=== PATIENT | female | born 1985 | race Caucasian/White ===

== ENCOUNTER 2017-12-12 17:11 | Emergency (ER) | payer BC ==
[2017-12-12] MEDS ORDERED: NS 1,000 ML IV ONE (18:09)
--- NOTE | 2017-12-12 18:21 | EDPHY ---
HPI/HX/ROS/PE/MDM Narrative: CHIEF COMPLAINT: Blurred vision, tingling in legs, heavy arms HISTORY OF PRESENT ILLNESS: The patient is a 32 y/o female with a history of tension headaches complaining of blurred vision, heavy arms, and tingling in her legs, worse in her left leg, onset 4:00 PM, 2 hours ago. Last week, she had diarrhea, fever, chills, myalgias, sharp and stabbing abdominal pain, nausea, and vomiting. The fever, chills, myalgia, and vomiting has resolved. She felt normal Saturday and Saturday. Saturday, the nausea and sharp pain in her left upper quadrant returned and has not resolved. She hasn't eaten much for the past few days. Two days ago she had Botox injections to her nose and forehead. Today, around 4:00PM, she began having blurred vision with sections of her visual field absent. In addition she had some colorful shimmering in the edges of her sight. The symptoms did not resolve and half an hour later she developed tingling in her legs, worse on the right, heaviness in her arms, and tingling in her face. She has an associated headache in the back of her head. She denies difficulty walking, difficulty swallowing, or any other associated symptoms. She denies recent trauma or changes in medication. She uses nicotine in the form of vaping. She denies heavy drinking, marijuana use, or illicit drug use. She uses Nuva ring for control and denies chance of . No fever, chills, chest pain, shortness of breath, palpitations, vomiting, diarrhea, urinary complaints, lightheadedness. REVIEW OF SYSTEMS: Aside from elements discussed in the HPI, a comprehensive 10-point review of systems was reviewed and is negative. PAST MEDICAL HISTORY: Depression, ADHD, tension headaches, Botox injections SOCIAL HISTORY: PCP: Candice, works at [employer], social drinker VITAL SIGNS: Reviewed by me GENERAL: Well-developed, well-nourished. Flat affect. Slow to answer questions. HEENT: Atraumatic. Eyes: No icterus, no injection. No nystagmus. PERRL, EOMI. Cranial nerves 2-12 are intact. Mouth: moist mucous membranes. No erythema or lesions. Neck: supple with no adenopathy. LUNGS: Clear to auscultation bilaterally, no wheezes, rhonchi or rales. CARDIAC: Regular rate and rhythm, no rubs, murmurs or gallops. ABDOMEN: Soft, nontender, nondistended, bowel sounds normal. BACK: No CVA tenderness. EXTREMITIES: No trauma. No edema. Range of motion is normal throughout. NEURO: Alert and oriented, grossly nonfocal. Somewhat slow to answer questions. Motor strength 5/5 throughout. Sensation intact to light touch throughout. Normal [id number]. SKIN: Warm and dry, no rash. PSYCHIATRIC: Normal mentation, no agitation. ED Course: 12-LEAD EKG: Please see the full report in [facility]. My interpretation: Sinus arrhythmia The patient presents with visual distortions, heaviness in her arms, and tingling in her face and legs onset 2 hours ago. She was ill last week with nausea, vomiting, diarrhea, and abdominal pain. On exam, she has a nonfocal neurologic exam. She seems to have flat affect and is slow to answer questions. Plan for fluids, CBC, basic metabolic panel, troponin, and EKG. 6:35 PM- EKG indicates sinus arrhythmia. Labs are not indicative of an etiology. Plan for urinalysis and drug screen as the patient continues to have a flat affect and is slightly "spacey". 8:00 p.m.: Patient is reexamined. She is feeling better. The arms feel not as heavy. She has had no further visual complaints. She has developed no headache. She has a nonfocal neurologic exam. Her affect is bright. She is conversant without difficulties. She feels comfortable being discharged with close follow up with her primary care physician. No headache. No neck pain. No numbness or tingling. No weakness. No speech difficulty. MDM: Differential diagnoses the patient's presenting complaints was considered including but not limited to intracranial injury, TIA, ischemic cerebrovascular accident, hemorrhagic cerebrovascular accident, hypoglycemia, complex migraine , metastases, tumor, seizure, or electrolyte abnormality - Data Points Laboratory Results: Laboratory Results 12/12/17 18:48 12/12/17 18:48 12/12/17 12/12/17 12/12/17 19:43 18:48 18:48 WBC RBC Hgb Hct MCV MCH MCHC RDW Plt Count MPV Neut % (Auto) Lymph % (Auto) [place] % (Auto) Eos % (Auto) Baso % (Auto) Nucleat RBC Rel Count Absolute Neuts (auto) Absolute Lymphs (auto) Absolute Monos (auto) Absolute Eos (auto) Absolute Basos (auto) Absolute Nucleated RBC Immature Gran % Immature Gran # Sodium 138 mEq/L mEq/L (135-145) Potassium 4.2 mEq/L mEq/L (3.5-5.2) Chloride 102 mEq/L mEq/L (97-110) Carbon Dioxide 25 mEq/l mEq/l (22-31) Anion Gap 11 mEq/L mEq/L (8-16) BUN 10 mg/dL mg/dL (7-23) Creatinine 0.6 mg/dL mg/dL (0.6-1.0) Estimated GFR > 60 Glucose 70 mg/dL mg/dL (70-100) Calcium 8.8 mg/dL mg/dL (8.5-10.4) Troponin I < 0.012 ng/mL ng/mL (0.000-0.034) Beta HCG, Qual NEGATIVE Urine Color YELLOW Urine Appearance HAZY Urine pH 7.0 (5.0-7.5) Ur Specific [place] 1.012 (1.002-1.030) Urine Protein NEGATIVE (NEGATIVE) Urine Ketones NEGATIVE (NEGATIVE) Urine Blood NEGATIVE (NEGATIVE) Urine Nitrate NEGATIVE (NEGATIVE) Urine Bilirubin NEGATIVE (NEGATIVE) Urine Urobilinogen NEGATIVE EU EU (0.2-1.0) Ur Leukocyte Esterase NEGATIVE (NEGATIVE) Urine RBC 1-3 /hpf /hpf (0-3) Urine WBC 1-3 /hpf /hpf (0-3) Ur Epithelial Cells TRACE /lpf /lpf (NONE-1+) Urine Bacteria TRACE /hpf H /hpf (NONE SEEN) Urine Mucus TRACE /lpf /lpf (NONE-1+) Urine Glucose NEGATIVE (NEGATIVE) Urine Opiates Screen NEGATIVE (NEGATIVE) Urine Barbiturates NEGATIVE (NEGATIVE) Ur Phencyclidine Scrn NEGATIVE (NEGATIVE) Ur Amphetamine Screen NON-NEGATIVE H (NEGATIVE) U Benzodiazepines Scrn NEGATIVE (NEGATIVE) Urine Cocaine Screen NEGATIVE (NEGATIVE) U Marijuana (THC) Screen NEGATIVE (NEGATIVE) 12/12/17 18:48 WBC 5.23 10^3/uL 10^3/uL (3.80-9.50) RBC 4.53 10^6/uL 10^6/uL (4.18-5.33) Hgb 13.7 g/dL g/dL (12.6-16.3) Hct 38.8 % % (38.0-47.0) MCV 85.7 fL fL (81.5-99.8) MCH 30.2 pg pg (27.9-34.1) MCHC 35.3 g/dL g/dL (32.4-36.7) RDW 11.5 % % (11.5-15.2) Plt Count 135 10^3/uL L 10^3/uL (150-400) MPV 10.8 fL fL (8.7-11.7) Neut % (Auto) 44.5 % % (39.3-74.2) Lymph % (Auto) 46.5 % H % (15.0-45.0) [place] % (Auto) 7.6 % % (4.5-13.0) Eos % (Auto) 1.0 % % (0.6-7.6) Baso % (Auto) 0.2 % L % (0.3-1.7) Nucleat RBC Rel Count 0.0 % % (0.0-0.2) Absolute Neuts (auto) 2.33 10^3/uL 10^3/uL (1.70-6.50) Absolute Lymphs (auto) 2.43 10^3/uL 10^3/uL (1.00-3.00) Absolute Monos (auto) 0.40 10^3/uL 10^3/uL (0.30-0.80) Absolute Eos (auto) 0.05 10^3/uL 10^3/uL (0.03-0.40) Absolute Basos (auto) 0.01 10^3/uL L 10^3/uL (0.02-0.10) Absolute Nucleated RBC 0.00 10^3/uL 10^3/uL (0-0.01) Immature Gran % 0.2 % % (0.0-1.1) Immature Gran # 0.01 10^3/uL 10^3/uL (0.00-0.10) Sodium Potassium Chloride Carbon Dioxide Anion Gap BUN Creatinine Estimated GFR Glucose Calcium Troponin I Beta HCG, Qual Urine Color Urine Appearance Urine pH Ur Specific [place] Urine Protein Urine Ketones Urine Blood Urine Nitrate Urine Bilirubin Urine Urobilinogen Ur Leukocyte Esterase Urine RBC Urine WBC Ur Epithelial Cells Urine Bacteria Urine Mucus Urine Glucose Urine Opiates Screen Urine Barbiturates Ur Phencyclidine Scrn Ur Amphetamine Screen U Benzodiazepines Scrn Urine Cocaine Screen U Marijuana (THC) Screen Medications Given: Discontinued Medications Sodium Chloride (Ns) 1,000 mls @ 0 mls/hr IV ONCE ONE; Wide Open PRN Reason: Protocol Stop: 12/12/17 18:10 Last Admin: 12/12/17 18:49 Dose: 1,000 mls General Time Seen by Provider: 12/12/17 17:47 Initial Vital Signs: Initial Vital Signs Temperature (C) 36.6 C 12/12/17 17:25 Heart Rate 84 12/12/17 17:25 Respiratory Rate 16 12/12/17 17:25 Blood Pressure 127/94 H 12/12/17 17:25 O2 Sat (%) 97 12/12/17 17:25 O2 Delivery Mode Room Air Allergies/Adverse Reactions: Sulfa (Sulfonamide Antibiotics) Allergy (Intermediate, Verified 12/12/17 17:31) Hives Home Medications: Medication Instructions Recorded Amphet Asp and D/Amphet [Adderall 10 mg PO 12/12/17 10 MG (*)] Citalopram [CeleXA] 20 mg PO 12/12/17 Departure - Departure Disposition: Home, Routine, Self-Care Clinical Impression: Blurred vision, Weakness Condition: Good Instructions: Weakness (ED), Blurred Vision (ED) Additional Instructions: 1. Get plenty of rest. Drink plenty of water. 2. Follow-up with your primary care provider. 3. Return to the emergency department for recurrence of symptoms. Referrals: Ana Maria Harvey MD [Primary Care Provider] - As per Instructions Report Scribed for: Irene Oglesby Report Scribed by: Cornelia Price Date of Report: 12/12/17 Time of Report: 18:21 Physician Review and Approval Statement: Portions of this note were transcribed by a biomedical service engineer. I personally performed a history, physical exam, medical decision making, and confirmed accuracy of information the transcribed note.
--- NOTE | 2017-12-12 18:35 | CPEKG ---
Heart Rate: 72 RR Interval: 833 P-R Interval: 192 QRSD Interval: 86 QT Interval: 400 QTC Interval: 438 P [place]: 58 QRS [place]: 58 T Wave [place]: 22 EKG Severity - BORDERLINE ECG - EKG Impression: SINUS ARRHYTHMIA, RATE 67-79 EKG Impression: VENTRICULAR PREMATURE COMPLEX EKG Impression: INTERPOLATED VENTRICULAR PREMATURE COMPLEX EKG Impression: BORDERLINE T ABNORMALITIES, ANTERIOR LEADS Electronically Signed By: Julian Tang 12-Dec-2017 21:53:52
[2017-12-12 19:05] LABS: PLATELET COUNT 135 10^3/uL (150-400)
[2017-12-12 20:37] VITALS: BP 111/80; PULSE 76; RESP 18; TEMP 98.1; O2SAT 100
== END 2017-12-12 20:42 | disposition home or self-care (01) ==
DX: H53.8 Other visual disturbances (principal); R53.1 Weakness; E86.9 Volume depletion, unspecified
CPT/HCPCS: 80305